=== PATIENT | female | born 1955 | race African-American/Black ===

== ENCOUNTER → 2020-04-26 | Day surgery (SDC) | payer MEDICARE, OTHER ==
[2020-04-22 12:04] LABS: BASOPHILS % 0.5 % (0.0-1.0); EOSINOPHILS # (AUTO) 0.2 (0.0-0.4); EOSINOPHILS % 2.7 % (0.0-6.0); HEMATOCRIT 34.3 % (34.2-44.1); LYMPHOCYTES # (AUTO) 2.6 (1.0-3.2); LYMPHOCYTES % 31.1 % (18.0-39.1); MEAN CORPUSCULAR HEMOGLOBIN 29.6 pg (28-32); MEAN CORPUSCULAR HGB CONC 32.1 g/dL (31-35); MEAN CORPUSCULAR VOLUME 92.2 fL (81-99); MONOCYTES # (AUTO) 0.8 (0.2-0.8); MONOCYTES % 9.7 % (4.4-11.3); NEUTROPHILS # (AUTO) 4.7 (2.1-6.9); NEUTROPHILS % 55.5 % (38.7-80.0); PLATELET COUNT 304 x10e3/uL (140-360); RED BLOOD COUNT 3.72 x10e6/uL (3.6-5.1); RED CELL DISTRIBUTION WIDTH 13.1 % (11.7-14.4)
[~2020-04-26] MED LIST: ENALAPRIL-HCTZ1 EACH PO; FARXIGA5 MG PO; FENTANYL CITRATE/PF 100MCG/2 ML INJ ONE; INSULIN REGULAR, HUMAN 100 UNIT/1 ML 3ML VIAL ONE; LIDOCAINE HCL 2% LOCAL INJ 5 ML SDV VIAL INJ ONE; LIPITOR10 MG PO; METFORMIN HCL500 MG PO; MIDAZOLAM HCL 2 MG/2 ML VIAL ONE; POTASSIUM CHLO10 ME1 PO; PROPOFOL IV EMULSION 10 MG/ML 20 ML VIAL ONE
[2020-04-26 12:15] VITALS: BP 116/68
== END | disposition home or self-care (01) ==
LOC: OR 08:25 → EDSEX 10:00
PROVIDERS: ATTEND Internal Medicine Gastroenterology
DX: Z12.11 Encounter for screening for malignant neoplasm of colon (principal); K29.70 Gastritis, unspecified, without bleeding; K21.9 Gastro-esophageal reflux disease without esophagitis; K57.30 Diverticulosis of large intestine without perforation or abscess without bleeding; K64.8 Other hemorrhoids; I10 Essential (primary) hypertension; E11.9 Type 2 diabetes mellitus without complications; R97.0 Elevated carcinoembryonic antigen [CEA]; Z79.899 Other long term (current) drug therapy; Z01.810 Encounter for preprocedural cardiovascular examination; Z01.812 Encounter for preprocedural laboratory examination; Z11.59 Encounter for screening for other viral diseases; Z79.84 Long term (current) use of oral hypoglycemic drugs; Z85.72 Personal history of non-Hodgkin lymphomas; Z92.21 Personal history of antineoplastic chemotherapy; Z92.3 Personal history of irradiation
CPT/HCPCS: 43239; G0121; 36415; 45378; 82948; 85025; 87635; 88305; 88312; 93005; J1817; J2001; J2250; J3010

== ENCOUNTER 2022-03-01 12:59 | Emergency (ER) | payer MEDICARE, OTHER ==
[~2022-03-01] VITALS: Ht 160 cm; Wt 92.5 kg
[~2022-03-01 12:59] MED LIST changes: -FENTANYL CITRATE/PF 100MCG/2 ML INJ ONE; -INSULIN REGULAR, HUMAN 100 UNIT/1 ML 3ML VIAL ONE; -LIDOCAINE HCL 2% LOCAL INJ 5 ML SDV VIAL INJ ONE; -MIDAZOLAM HCL 2 MG/2 ML VIAL ONE; -PROPOFOL IV EMULSION 10 MG/ML 20 ML VIAL ONE
[2022-03-01] MEDS ORDERED: HYDROCODONE/APAP 5MG-325MG TAB PO PRN (13:15)
[2022-03-01] MEDS ORDERED: METHOCARBAMOL750 MG PO (14:29)
== END 2022-03-01 14:59 | disposition home or self-care (01) ==
LOC: ER 13:02
DX: M54.59 Other low back pain (principal); C85.90 Non-Hodgkin lymphoma, unspecified, unspecified site; I10 Essential (primary) hypertension; E11.9 Type 2 diabetes mellitus without complications; F03.90 Unspecified dementia, unspecified severity, without behavioral disturbance, psychotic disturbance, mood disturbance, and anxiety; E78.5 Hyperlipidemia, unspecified; W01.198A Fall on same level from slipping, tripping and stumbling with subsequent striking against other object, initial encounter; Y92.89 Other specified places as the place of occurrence of the external cause; Z79.84 Long term (current) use of oral hypoglycemic drugs; Z79.899 Other long term (current) drug therapy
CPT/HCPCS: 70450; 72125; 72128; 72131; 93005; 99284

== ENCOUNTER → 2022-12-03 | Outpatient (CLI) | payer MEDICARE, OTHER ==
[~2022-12-03] MED LIST changes: +METHOCARBAMOL750 MG PO
== END ==
LOC: US 13:59
PROVIDERS: ATTEND Radiology Body Imaging
DX: E07.9 Disorder of thyroid, unspecified (principal); Z85.72 Personal history of non-Hodgkin lymphomas
CPT/HCPCS: 76536

== ENCOUNTER → 2023-02-04 | Outpatient (CLI) | payer MEDICARE, OTHER | LOC: MRI 14:12 | PROVIDERS: ATTEND Radiology Body Imaging | DX: R41.3 Other amnesia (principal); Z85.72 Personal history of non-Hodgkin lymphomas | CPT/HCPCS: 70551; 71046 ==